=== PATIENT | male | born 1955 | race American Indian/Alaskan Native ===

== ENCOUNTER 2020-09-19 08:59 | Emergency (ER) | payer OTHER, MEDICARE ==
[2020-09-19 09:09] VITALS: BP 133/70
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
== END 2020-09-19 11:23 | disposition home or self-care (01) ==
LOC: ED 08:59
DX: M51.36 Other intervertebral disc degeneration, lumbar region (principal); M25.571 Pain in right ankle and joints of right foot; I10 Essential (primary) hypertension; Z98.890 Other specified postprocedural states; Z79.899 Other long term (current) drug therapy; V49.49XA Driver injured in collision with other motor vehicles in traffic accident, initial encounter; Y93.89 Activity, other specified; Y92.410 Unspecified street and highway as the place of occurrence of the external cause; Y99.8 Other external cause status
CPT/HCPCS: 72100